=== PATIENT | male | born 2000 | race Caucasian/White ===

== ENCOUNTER → 2019-05-10 | Outpatient (CLI) | payer BC, OTHER ==
--- NOTE | 2019-05-10 11:45 | Diagnostic Imaging Report ---
Left hip at 1051 hours. INDICATION: Injury, hip pain. AP and lateral views were obtained. COMPARISON: There are no prior studies available for comparison. FINDINGS: There is no fracture, dislocation or acute bony abnormality evident. The hip joint is well-maintained as is the left sacroiliac joint. The soft tissues are unremarkable. IMPRESSION: 1. There is no evidence for acute bony abnormality. 2. If clinical concern regarding an underlying abnormality persists, then MRI would be recommended for further study. Dictated by: Dictated on workstation # [id number]
== END ==
LOC: RAD FS 10:43
PROVIDERS: ATTEND Nurse Practitioner
DX: S79.912A Unspecified injury of left hip, initial encounter (principal)
CPT/HCPCS: 73502

== ENCOUNTER → 2019-05-23 | Outpatient (CLI) | payer BC, OTHER ==
[~2019-05-23] VITALS: Ht 182.9 cm; Wt 90.7 kg
[~2019-05-23] MED LIST: GADOBUTROL 7.5 MMOL/7.5 ML (GADAVIST) VIAL IV ONE; IOHEXOL 240 MGI/ML 20 ML (OMNIPAQUE) VIAL IV ONE
--- NOTE | 2019-05-23 11:29 | Diagnostic Imaging Report ---
INDICATION: Left hip pain. FINDINGS: Patient was brought to the procedure room, placed on table in the supine position. Skin of the left hip was prepped and draped in the usual sterile fashion. Small amount of 1% lidocaine was utilized for local anesthesia. 20-gauge needle was advanced into the left hip, placed with the tip at the femoral head neck junction laterally. 15 mL solution of iodinated contrast, normal saline, and gadolinium was injected under fluoroscopic observation. Needle was withdrawn and hemostasis was obtained. Patient tolerated the procedure well and was sent to MRI in satisfactory condition. 34 seconds of fluoroscopy was utilized. IMPRESSION: Successful left hip injection of gadolinium contrast solution, using fluoroscopy. Dictated by: Dictated on workstation # [id number]
--- NOTE | 2019-05-23 12:43 | Diagnostic Imaging Report ---
EXAMINATION: Magnetic resonance imaging of the pelvis and left hip with intra-articular contrast. DATE: May 23, 2019. COMPARISON: Left hip arthrogram of May 23, 2019. Left hip radiographs of May 10, 2019. INDICATION: 18-year-old male, left hip injury 2 weeks ago. Left hip pain. TECHNIQUE: Magnetic Resonance Imaging sequences were performed of the pelvis and left hip following the intra-articular administration of contrast. FINDINGS: TENDONS AND MUSCLES: The gluteus simone muscles and their origins and insertions are intact bilaterally. The tendons and muscles of the greater trochanter (gluteus minimus, piriformis, and gluteus medius) are intact bilaterally. Both common hamstring attachments on the ischial tuberosities are intact and the extensor muscles of the thigh are intact. The visualized portions of the flexors and adductor muscles of the thigh and their attachments on the pelvis and hips are intact. Both iliopsoas and iliacus muscles are intact. The bilateral iliopsoas tendons are intact. HIPS AND SACROILIAC JOINTS: The contours of the femoral heads and acetabuli are smooth and symmetric. There is minimal irregularity of the left hip anterosuperior labrum. There is no paralabral cyst. The articular cartilage is grossly intact. There is no intra-articular body or prominent synovitis. The left hip alpha angle is within normal limits at 42 degrees. There is limited evaluation of the right hip for assessment of labral tear. There is no obvious right paralabral cyst. There is no right hip joint effusion. The sacroiliac joints are grossly unremarkable in appearance on limited evaluation. LUMBAR SPINE: There is transitional lumbosacral anatomy. L5 is labeled as having an enlarged right lateral mass which has a pseudoarticulation with S1. BONE: The bone marrow signal is within normal limits. Specifically, negative for fracture, osteomyelitis, osteonecrosis, or marrow replacing process. BURSAE AND SOFT TISSUES: The bursae and soft tissues surrounding the pelvis and hips are within normal limits. IMPRESSION: 1. Minimal irregularity of the left hip anterosuperior labrum. No paralabral cyst. Normal alpha angle of the left hip. 2. Intact muscles and tendons. 3. No acute fracture, bone contusion, or other bone marrow signal abnormality. 4. Transitional lumbosacral anatomy. If spinal intervention is to be performed in the future, recommend careful correlation with levels. Dictated by: Dictated on workstation # [id number]
== END ==
LOC: RAD 10:34
PROVIDERS: ATTEND Nurse Practitioner
DX: S79.912A Unspecified injury of left hip, initial encounter (principal); M24.152 Other articular cartilage disorders, left hip; M25.852 Other specified joint disorders, left hip; Q76.49 Other congenital malformations of spine, not associated with scoliosis
CPT/HCPCS: 27093; 73525; 73722

== ENCOUNTER → 2019-08-09 | Outpatient (CLI) | payer BC, OTHER ==
--- NOTE | 2019-08-09 09:57 | Diagnostic Imaging Report ---
Clinical indications: Football injury one and a half weeks ago. Patient has pain, cannot fully straighten knee. Exam: X-ray of the right knee, 3 views. Comparison: None. Findings: There is no acute fracture or dislocation. There is no knee effusion. There is no significant bone or joint abnormality. Impression: There is no acute fracture or dislocation. Dictated by: Dictated on workstation # [id number]
== END ==
LOC: RAD FS 09:32
PROVIDERS: ATTEND Nurse Practitioner
DX: S89.91XA Unspecified injury of right lower leg, initial encounter (principal); Y93.61 Activity, american tackle football
CPT/HCPCS: 73562